=== PATIENT | male | born 1975 | race Caucasian/White ===

== ENCOUNTER → 2018-12-31 | Outpatient (CLI) | payer OTHER ==
--- NOTE | 2018-12-31 15:32 | REP ---
Chest x-ray: Two views. History: Upper respiratory infection. Abnormal breath sounds. Findings: The lungs are well inflated and clear. The pleural angles are sharp. Cardiomediastinal silhouette and bony thorax are unremarkable. Impression: No active disease. Electronically Signed by Byron Alexandre MD 12/31/2018 04:07 P
== END ==
LOC: M RAD 10:26
PROVIDERS: ATTEND Surgery
DX: J06.9 Acute upper respiratory infection, unspecified (principal)

== ENCOUNTER → 2019-03-18 | Outpatient (CLI) | payer OTHER ==
--- NOTE | 2019-03-18 12:06 | REP ---
Eight views cervical spine: 03/18/2019. Indication: Neck pain. Comparison: None. Findings: There is no acute fracture, subluxation or dislocation. No lytic or blastic osseous lesions are detected. There is no instability demonstrated during dynamic testing. The neural foramina are patent. Disc space height is preserved. Impression: No acute osseous cervical spine injury. Electronically Signed by Shiva Oh DO 03/18/2019 11:59 A
== END ==
LOC: M RAD 09:01
PROVIDERS: ATTEND Surgery
DX: M54.2 Cervicalgia (principal)